=== PATIENT | female | born 1985 | race Hispanic/Latino ===

== ENCOUNTER 2020-11-26 13:22 | Emergency (ER) | payer MEDICAID ==
[2020-11-26 14:01] VITALS: BP 122/76
[2020-11-26] MEDS ORDERED: LIDOCAINE-MPF (1%) 10 MG/1 ML VIAL 5 ML INFILTRATI ONE (15:02)
--- NOTE | 2020-11-26 15:02 | Emergency Department Report ---
ED General Adult HPI - General Chief complaint: Urogenital-Female Stated complaint: VAGINAL DISCOMFORT Time Seen by Provider: 11/26/20 14:05 Source: patient Mode of arrival: Ambulatory Limitations: No Limitations - History of Present Illness Initial comments: 35-year-old female patient presents with complaints of + chlamydia test. She states that she had a positive chlamydia test from an urgent care in mid September of this year, however she did not take the prescribed antibiotics. Patient states she continues to have vaginal discharge and has now developed mild intermittent lower pelvic pain without dyspareunia or vaginal bleeding. She also denies any dysuria/hematuria/urinary frequency, fever/chills/sweats, or past medical history. - Related Data Previous Rx's Medication Instructions Recorded Last Taken Type Fluticasone [Flonase] 1 spray NS QDAY #1 bottle 04/28/15 Unknown Rx Loratadine (Nf) [Claritin] 10 mg PO DAILY #30 tablet 04/28/15 Unknown Rx cephALEXin [Keflex] 500 mg PO Q12HR 3 Days #6 cap 08/11/19 Unknown Rx Doxycycline Monohydrate 100 mg PO BID 14 Days #28 capsule 11/26/20 Unknown Rx Allergies Allergy/AdvReac Type Severity Reaction Status Date / Time No Known Allergies Allergy Verified 04/28/15 15:48 ED Review of Systems ROS: Stated complaint: VAGINAL DISCOMFORT Other details as noted in HPI Constitutional: denies: chills, fever, malaise Gastrointestinal: abdominal pain. denies: nausea, vomiting Genitourinary: discharge. denies: urgency, dysuria, frequency, hematuria, dyspareunia Musculoskeletal: denies: back pain, joint swelling, arthralgia Skin: denies: rash, change in color Hematological/Lymphatic: denies: swollen glands ED Past Medical Hx - Past Medical History Previous Medical History?: Yes Hx Psychiatric Treatment: Yes (schizo bipolar) Additional medical history: epilepsy 2017 not on medications - Surgical History Past Surgical History?: Yes Additional Surgical History: CS X 2, rt ankle surgery - Social History Smoking Status: Current Every Day Smoker - Medications Home Medications: Home Medications Medication Instructions Recorded Confirmed Last Taken Type Fluticasone [Flonase] 1 spray NS QDAY #1 bottle 04/28/15 Unknown Rx Loratadine (Nf) [Claritin] 10 mg PO DAILY #30 tablet 04/28/15 Unknown Rx cephALEXin [Keflex] 500 mg PO Q12HR 3 Days #6 cap 08/11/19 Unknown Rx Doxycycline Monohydrate 100 mg PO BID 14 Days #28 capsule 11/26/20 Unknown Rx ED Physical Exam - General Limitations: No Limitations General appearance: alert, in no apparent distress - Head Head exam: Present: atraumatic, normocephalic - Eye Eye exam: Present: normal appearance - Neck Neck exam: Present: normal inspection - Respiratory Respiratory exam: Absent: respiratory distress - Cardiovascular Cardiovascular Exam: Present: regular rate, normal rhythm - GI/Abdominal GI/Abdominal exam: Present: soft, normal bowel sounds. Absent: distended, tenderness, guarding, rebound, rigid - Extremities Exam Extremities exam: Present: full ROM - Back Exam Back exam: Present: normal inspection. Absent: CVA tenderness (R), CVA tenderness (L) - Neurological Exam Neurological exam: Present: alert, oriented X3 - Psychiatric Psychiatric exam: Present: normal affect, normal mood - Skin Skin exam: Present: warm, dry, intact, normal color. Absent: rash ED Course Vital Signs 11/26/20 11/26/20 13:27 14:00 Temperature 98 F 98.4 F Pulse Rate 77 79 Respiratory 16 14 Rate Blood Pressure 156/104 122/76 [Left] O2 Sat by Pulse 99 99 Oximetry ED Medical Decision Making - Medical Decision Making 35-year-old female patient presents with complaints of + chlamydia test. She states that she had a positive chlamydia test from an urgent care in mid September of this year, however she did not take the prescribed antibiotics. Patient states she continues to have vaginal discharge and has now developed mild intermittent lower pelvic pain without dyspareunia or vaginal bleeding. She also denies any dysuria/hematuria/urinary frequency, fever/chills/sweats, or past medical history. No abdominal tenderness to palpation noted on exam. Given patient was diagnosed with chlamydia in September and not treated, the duration of her symptoms, and new onset of intermittent lower abdominal pain, she will be covered for PID with Rocephin IM and discharged home with doxycycline for 14 days. Discussed importance of follow-up with [facility] or PCP in 3 to 5 days. She is otherwise well-appearing, her vitals are normal, she is stable for discharge home. Discussed in great detail signs and symptoms that should prompt immediate return to the ED with patient verbalized understanding. Critical care attestation.: If time is entered above; I have spent that time in minutes in the direct care of this critically ill patient, excluding procedure time. ED Disposition Clinical Impression: Chlamydia, Pelvic pain Disposition: HOME / SELF CARE / HOMELESS Is pt being admited?: No Condition: Stable Instructions: Chlamydia, Female, Pelvic Inflammatory Disease Prescriptions: Doxycycline Monohydrate 100 mg PO BID 14 Days #28 capsule Referrals: [facility] [Provider Group] - 3-5 Days
[2020-11-26 15:40] LABS: Bacteria,Urine 1+ /HPF (Negative); Bilirubin,Urine NEG (Negative); Blood,Urine NEG (Negative); Color,Urine Yellow (Yellow); Mucus,Urine FEW /HPF; Protein,Urine <15 mg/dL mg/dL (Negative); Urobilinogen,Urine < 2.0 mg/dL (<2.0)
[2020-11-26 16:00] LABS: HCG Qualitative,Urine Negative (Negative)
== END 2020-11-26 17:22 | disposition left against medical advice (07) ==
LOC: ED 13:22
DX: A74.9 Chlamydial infection, unspecified (principal); R10.2 Pelvic and perineal pain; F20.9 Schizophrenia, unspecified; F31.9 Bipolar disorder, unspecified; G40.909 Epilepsy, unspecified, not intractable, without status epilepticus; Z98.890 Other specified postprocedural states; F17.200 Nicotine dependence, unspecified, uncomplicated
CPT/HCPCS: 81001; 81025; 87076; 87086; 87186; 96372; 99283; J0696

== ENCOUNTER 2021-10-18 04:47 | Emergency (ER) | payer MEDICAID ==
--- NOTE | 2021-10-18 06:11 | XRay Report ---
LEFT HAND 3 VIEW(S) INDICATION / CLINICAL INFORMATION: fall COMPARISON: None available. FINDINGS: No fracture, dislocation, or significant soft tissue abnormality is demonstrated. No radiopaque forei gn bodies are identified. Small bony exostosis along the ulnar aspect of the left long finger middle phalanx adjacent the DIP is present. IMPRESSION: 1. No acute fracture. Signer Name: Marlon Aviles II, MD Signed: 10/18/2021 6:07 AM Workstation Name: [id number]
[2021-10-18] MEDS ORDERED: oxyCODONE /ACETAMINOPHEN 5-325MG TAB PO ONE (08:26)
[2021-10-18] MEDS ORDERED: KETOROLAC 10 MG TAB PO ONE (08:26)
[2021-10-18] MEDS ORDERED: AMOXICILLIN 500 MG CAP PO ONE (08:26)
--- NOTE | 2021-10-18 08:32 | Emergency Department Report ---
ED ENT HPI - General Chief complaint: Dental/Oral Stated complaint: INJURY LEFT AND POSS JAW INFECTION Time Seen by Provider: 10/18/21 07:09 Source: patient Mode of arrival: Ambulatory Limitations: No Limitations - History of Present Illness Initial comments: 36-year-old white female with no past medical history presents to the emergency department for evaluation of left-sided facial swelling and tooth ache along with left hand pain. She states that she has had intermittent swelling and toothache pain for the last 3 weeks that has gotten significantly worse over the last couple of days. She denies fever. She also states that she fell a couple days ago and now has persistent left hand pain and swelling. - Related Data Previous Rx's Medication Instructions Recorded Last Taken Type Fluticasone [Flonase] 1 spray NS QDAY #1 bottle 04/28/15 Unknown Rx Loratadine (Nf) [Claritin] 10 mg PO DAILY #30 tablet 04/28/15 Unknown Rx cephALEXin [Keflex] 500 mg PO Q12HR 3 Days #6 cap 08/11/19 Unknown Rx Doxycycline Monohydrate 100 mg PO BID 14 Days #28 capsule 11/26/20 Unknown Rx Acetaminophen/Codeine [Tylenol 1 tab PO Q6H PRN #12 tab 10/18/21 Unknown Rx /Codeine # 3 tab] Amoxicillin [Amoxicillin TAB] 875 mg PO BID 7 Days #14 tab 10/18/21 Unknown Rx Ketorolac [Toradol] 10 mg PO Q6H PRN #12 tab 10/18/21 Unknown Rx Allergies Allergy/AdvReac Type Severity Reaction Status Date / Time No Known Allergies Allergy Verified 04/28/15 15:48 ED Dental HPI - General Chief complaint: Dental/Oral Stated complaint: INJURY LEFT AND POSS JAW INFECTION Time Seen by Provider: 10/18/21 07:09 Source: patient Mode of arrival: Ambulatory Limitations: No Limitations - Related Data Previous Rx's Medication Instructions Recorded Last Taken Type Fluticasone [Flonase] 1 spray NS QDAY #1 bottle 04/28/15 Unknown Rx Loratadine (Nf) [Claritin] 10 mg PO DAILY #30 tablet 04/28/15 Unknown Rx cephALEXin [Keflex] 500 mg PO Q12HR 3 Days #6 cap 08/11/19 Unknown Rx Doxycycline Monohydrate 100 mg PO BID 14 Days #28 capsule 11/26/20 Unknown Rx Acetaminophen/Codeine [Tylenol 1 tab PO Q6H PRN #12 tab 10/18/21 Unknown Rx /Codeine # 3 tab] Amoxicillin [Amoxicillin TAB] 875 mg PO BID 7 Days #14 tab 10/18/21 Unknown Rx Ketorolac [Toradol] 10 mg PO Q6H PRN #12 tab 10/18/21 Unknown Rx Allergies Allergy/AdvReac Type Severity Reaction Status Date / Time No Known Allergies Allergy Verified 04/28/15 15:48 ED Review of Systems ROS: Stated complaint: INJURY LEFT AND POSS JAW INFECTION Other details as noted in HPI Comment: All other systems reviewed and negative Constitutional: denies: chills, fever Eyes: denies: vision change ENT: dental pain. denies: throat pain, congestion Respiratory: denies: shortness of breath Cardiovascular: denies: chest pain, palpitations Gastrointestinal: denies: abdominal pain, nausea, vomiting Genitourinary: denies: urgency, dysuria Musculoskeletal: denies: back pain Neurological: denies: headache, weakness ED Past Medical Hx - Past Medical History Hx Psychiatric Treatment: Yes (schizo bipolar) Additional medical history: epilepsy 2017 not on medications - Surgical History Additional Surgical History: CS X 2, rt ankle surgery - Social History Smoking Status: Current Every Day Smoker - Medications Home Medications: Home Medications Medication Instructions Recorded Confirmed Last Taken Type Fluticasone [Flonase] 1 spray NS QDAY #1 bottle 04/28/15 Unknown Rx Loratadine (Nf) [Claritin] 10 mg PO DAILY #30 tablet 04/28/15 Unknown Rx cephALEXin [Keflex] 500 mg PO Q12HR 3 Days #6 cap 08/11/19 Unknown Rx Doxycycline Monohydrate 100 mg PO BID 14 Days #28 capsule 11/26/20 Unknown Rx Acetaminophen/Codeine [Tylenol 1 tab PO Q6H PRN #12 tab 10/18/21 Unknown Rx /Codeine # 3 tab] Amoxicillin [Amoxicillin TAB] 875 mg PO BID 7 Days #14 tab 10/18/21 Unknown Rx Ketorolac [Toradol] 10 mg PO Q6H PRN #12 tab 10/18/21 Unknown Rx ED Physical Exam - General Limitations: No Limitations General appearance: alert, in no apparent distress - Head Head exam: Present: atraumatic, normocephalic - Eye Eye exam: Present: normal appearance. Absent: conjunctival injection, periorbital swelling, periorbital tenderness - Expanded ENT Exam Expanded Teeth exam: Present: dental tenderness # (18), other (Abscess noted to the jaw beside tooth #18) Throat exam: Positive: normal inspection - Neck Neck exam: Present: normal inspection. Absent: tenderness, lymphadenopathy - Respiratory Respiratory exam: Absent: respiratory distress - Cardiovascular Cardiovascular Exam: Present: tachycardia - GI/Abdominal GI/Abdominal exam: Absent: distended, tenderness - Extremities Exam Extremities exam: Present: normal inspection, full ROM, normal capillary refill. Absent: pedal edema, joint swelling, calf tenderness - Back Exam Back exam: Present: normal inspection. Absent: CVA tenderness (R), CVA tenderness (L) - Neurological Exam Neurological exam: Present: alert, oriented X3, normal gait - Psychiatric Psychiatric exam: Present: normal affect, normal mood - Skin Skin exam: Present: warm, dry, normal color ED Course Vital Signs 10/18/21 04:58 Temperature 98.3 F Pulse Rate 105 H Respiratory 18 Rate Blood Pressure 122/69 [Right] O2 Sat by Pulse 95 Oximetry ED Medical Decision Making - Radiology Data Radiology results: report reviewed, image reviewed Left hand x-ray: FINDINGS: No fracture, dislocation, or significant soft tissue abnormality is demonstrated. No radiopaque foreign bodies are identified. Small bony exostosis along the ulnar aspect of the left long finger middle phalanx adjacent the DIP is present. IMPRESSION: 1. No acute fracture. - Medical Decision Making 36-year-old white female with no past medical history presents to the emergency department for evaluation of left-sided facial swelling and tooth ache along with left hand pain. She states that she has had intermittent swelling and toothache pain for the last 3 weeks that has gotten significantly worse over the last couple of days. She denies fever. She also states that she fell a couple days ago and now has persistent left hand pain and swelling. Physical exam consistent with abscess to the gum on the left side of mouth. Left hand x-ray without any acute abnormalities noted. Patient placed in Shawn wrap. Patient be discharged home with 7-day course of amoxicillin, Toradol, and Tylenol 3 and advised to follow-up with the dentist for further evaluation and management she is advised to follow with her primary care provider or orthopedics if no improvement in left hand. She is advised to return to the emergency department as needed. She verbalizes understanding of and agreement with plan of care. Critical care attestation.: If time is entered above; I have spent that time in minutes in the direct care of this critically ill patient, excluding procedure time. ED Disposition Clinical Impression: Dental abscess, Left hand pain Disposition: 01 HOME / SELF CARE / HOMELESS Is pt being admited?: No Does the pt Need Aspirin: No Condition: Stable Instructions: Dental Abscess, [id number], How to Use Cold Therapy, [id number], Hand Exercises, Hand Pain Additional Instructions: Take medications as prescribed. Follow-up with dentist for management of dental pain and abscess. Follow-up with your primary care provider or orthopedics if no improvement in left hand pain. Return to the emergency department as needed. Prescriptions: Amoxicillin [Amoxicillin TAB] 875 mg PO BID 7 Days #14 tab Ketorolac [Toradol] 10 mg PO Q6H PRN #12 tab PRN Reason: Pain Acetaminophen/Codeine [Tylenol /Codeine # 3 tab] 1 tab PO Q6H PRN #12 tab PRN Reason: Pain , Severe (7-10) Referrals: CYNTHIA LI MD [Staff Physician] - 3-5 Days [facility] [Outside] - 3-5 Days [facility] [Outside] - 3-5 Days Forms: Work/School Release Form(ED) Time of Disposition: 08:36 ED Fall HPI - General Chief Complaint: Dental/Oral Stated Complaint: INJURY LEFT AND POSS JAW INFECTION Time Seen by Provider: 10/18/21 07:09 Source: patient Mode of arrival: Ambulatory - History of Present Illness Complaint: fall -: Sudden, days(s) (2) When Fall Occurred: # days [employer] (2) Place Fall Occurred: home Loss of Consciousness: none Prolonged Down Time?: no Symptoms Prior to Fall: none Location - Extremities: Left: Hand Severity: severe Severity scale (0 -10): 8 Quality: aching Context: tripped/slipped Associated Symptoms: denies - Related Data Previous Rx's Medication Instructions Recorded Last Taken Type Fluticasone [Flonase] 1 spray NS QDAY #1 bottle 04/28/15 Unknown Rx Loratadine (Nf) [Claritin] 10 mg PO DAILY #30 tablet 04/28/15 Unknown Rx cephALEXin [Keflex] 500 mg PO Q12HR 3 Days #6 cap 08/11/19 Unknown Rx Doxycycline Monohydrate 100 mg PO BID 14 Days #28 capsule 11/26/20 Unknown Rx Acetaminophen/Codeine [Tylenol 1 tab PO Q6H PRN #12 tab 10/18/21 Unknown Rx /Codeine # 3 tab] Amoxicillin [Amoxicillin TAB] 875 mg PO BID 7 Days #14 tab 10/18/21 Unknown Rx Ketorolac [Toradol] 10 mg PO Q6H PRN #12 tab 10/18/21 Unknown Rx Allergies Allergy/AdvReac Type Severity Reaction Status Date / Time No Known Allergies Allergy Verified 04/28/15 15:48
[2021-10-18 09:22] VITALS: BP 124/86
== END 2021-10-18 09:29 | disposition home or self-care (01) ==
LOC: ED 04:47
DX: K04.7 Periapical abscess without sinus (principal); M79.642 Pain in left hand; F20.9 Schizophrenia, unspecified; F17.200 Nicotine dependence, unspecified, uncomplicated; Z98.890 Other specified postprocedural states; Z79.899 Other long term (current) drug therapy
CPT/HCPCS: 99283